=== PATIENT | female | born 1945 | race Asian ===

== ENCOUNTER 2022-08-02 08:12 | Emergency (ER) | payer OTHER ==
[~2022-08-02] VITALS: Ht 152.4 cm; Wt 41.7 kg
[2022-08-02 08:29] VITALS: BP_SYST 157
[2022-08-02 08:53] LABS: BASOPHILS % (AUTO) 0.3 % (0.0-2.0); EOSINOPHILS # (AUTO) 0.1 K/uL (0.0-0.4); EOSINOPHILS % (AUTO) 0.6 % (0.0-4.0); HEMOGLOBIN 9.9 g/dL (12.0-16.0); LYMPHOCYTES # (AUTO) 0.8 K/uL (1.0-5.5); LYMPHOCYTES % (AUTO) 5.5 % (20.5-51.5); MEAN CORPUSCULAR HEMOGLOBIN 30 pg (27-31); MEAN CORPUSCULAR HGB CONC 33 % (32-36); MEAN CORPUSCULAR VOLUME 92 fL (79.0-98.0); MONOCYTES % (AUTO) 6.9 % (1.7-9.3); NEUTROPHILS # (AUTO) 13.1 K/uL (1.8-7.7); NEUTROPHILS % (AUTO) 86.7 % (40.0-70.0); PLATELET COUNT (AUTO) 168 K/uL (130-430); RED BLOOD CELL COUNT(AUTO) 3.27 MIL/uL (4.2-6.2); RED CELL DISTRIBUTION WIDTH 13.8 % (9.0-15.0); WHITE BLOOD COUNT (AUTO) 15.1 K/uL (4.8-10.8)
[2022-08-02 09:12] LABS: ANION GAP 10 (5-15); CHLORIDE 106 mmol/L (98-107); CREATININE 1.57 mg/dL (0.55-1.30); GLUCOSE 109 mg/dL (70-99); UREA NITROGEN, BLOOD 66 mg/dL (8-21)
[2022-08-02 09:19] LABS: ALANINE AMINOTRANSFERASE 35 U/L (12-78); ALBUMIN 3.9 g/dL (3.4-4.8); ASPARTATE AMINOTRANSFERASE 29 U/L (10-37); TOTAL BILIRUBIN 0.4 mg/dL (0.0-1.0)
[2022-08-02 09:41] LABS: BILIRUBIN,URINE NEGATIVE (NEGATIVE); BLOOD, URINE NEGATIVE (NEGATIVE); CLARITY/URINE CLEAR (CLEAR); COLOR,URINE YELLOW (YELLOW); GLUCOSE,URINE NEGATIVE (NEGATIVE); KETONES,URINE NEGATIVE (NEGATIVE); LEUKOCYTE ESTERASE ,URINE NEGATIVE (NEGATIVE); NITRITE, URINE NEGATIVE (NEGATIVE); PROTEIN URINE TRACE (NEGATIVE); UROBILINOGEN,URINE 0.2 (0.2-1.0)
[2022-08-02] MEDS ORDERED: CLOP75TA32 PO (09:51)
[2022-08-02] MEDS ORDERED: LOSA100T23 PO (09:51)
[2022-08-02] MEDS ORDERED: DONE5TAB33 PO (09:51)
[2022-08-02] MEDS ORDERED: DONE10TA44 PO (09:51)
[2022-08-02] MEDS ORDERED: AMLO10TA88 PO (09:51)
[2022-08-02] MEDS ORDERED: ATOR-1 PO (09:51)
[2022-08-02 10:26] VITALS: BP_SYST 157
== END 2022-08-02 10:27 | disposition home or self-care (01) ==
LOC: SED 08:12
DX: S09.90XA Unspecified injury of head, initial encounter (principal); N28.9 Disorder of kidney and ureter, unspecified; I10 Essential (primary) hypertension; Z88.0 Allergy status to penicillin; Z88.6 Allergy status to analgesic agent; Z79.899 Other long term (current) drug therapy; W19.XXXA Unspecified fall, initial encounter; Y93.89 Activity, other specified; Y92.89 Other specified places as the place of occurrence of the external cause; Y99.8 Other external cause status
CPT/HCPCS: 36415; 70450-TC; 72125-TC; 76376; 80053; 81003; 82962; 83880; 84484; 85025; 99284